=== PATIENT | male | born 1955 | race Hispanic/Latino ===

== ENCOUNTER 2017-08-17 10:07 | Emergency (ER) | payer BC ==
[2017-08-17 10:27] VITALS: RESP 18; BMI 24.3
--- NOTE | 2017-08-17 10:47 | ED PDOC ---
HPI: Psych/Substance Abuse Time Seen by Provider: 08/17/17 10:31 Chief Complaint (Nursing): Psychiatric Evaluation Chief Complaint (Provider): Psychiatric evaluation History Per: Patient History/Exam Limitations: no limitations Onset/Duration Of Symptoms: Days Current Symptoms Are (Timing): Still Present Associated Symptoms: Depression, Suicidal Thoughts Additional Complaint(s): 62yo male, with history of hypertension and depression, presents to ED for evaluation after he had suicidal ideation yesterday. Patient states he has been feeling depressed recently but denies any inciting incident. He states he has been from his for over 15 years and has 2 daughters with whom he has a good and healthy relationship. Patient states he was sober but started drinking alcohol 2-3 months prior; his last drink was over a week ago. He denies any suicidal ideation today, and denies any chest pain, shortness of breath, abdominal pain, vomiting or diarrhea. He denies any auditory or visual hallucinations as well. 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 He has no other medical complaints. Past Medical History Reviewed: Historical Data, Nursing Documentation, Vital Signs Vital Signs: Last Vital Signs Temp 98.3 F 08/17/17 10:25 Pulse 105 H 08/17/17 10:25 Resp 18 08/17/17 10:25 BP 180/106 H 08/17/17 10:25 Pulse Ox 96 08/17/17 10:25 - Medical History PMH: Depression, HTN - Surgical History Surgical History: No Surg Hx - Family History Family History: States: No Known Family Hx - Social History Alcohol: Occasional - Home Medications Home Medications: Ambulatory Orders Medication Instructions Recorded Valsartan [Diovan] 80 mg PO DAILY #14 tab 08/17/17 - Allergies Allergies/Adverse Reactions: Allergies Allergy/AdvReac Type Severity Reaction Status Date / Time No Known Allergies Allergy Verified 08/17/17 10:42 Review of Systems ROS Statement: Except As Marked, All Systems Reviewed And Found Negative Constitutional: Negative for: Fever, Chills Cardiovascular: Negative for: Chest Pain Respiratory: Negative for: Shortness of Breath Gastrointestinal: Negative for: Abdominal Pain Psych: Positive for: Suicidal ideation (none currently) Physical Exam - Reviewed Nursing Documentation Reviewed: Yes Vital Signs Reviewed: Yes - Physical Exam Appears: Positive for: Non-toxic Head Exam: Positive for: ATRAUMATIC, NORMAL INSPECTION, NORMOCEPHALIC Skin: Positive for: Normal Color Eye Exam: Positive for: Normal appearance Neck: Positive for: Supple Cardiovascular/Chest: Positive for: Tachycardia (accelerated resting heart rate at 108bpm) Respiratory: Positive for: Normal Breath Sounds. Negative for: Respiratory Distress Gastrointestinal/Abdominal: Positive for: Normal Exam, Soft. Negative for: Tenderness Extremity: Positive for: Normal ROM, Other (mild tremors noted to bilateral upper extremities) Neurologic/Psych: Positive for: Alert, Oriented. Negative for: Motor/Sensory Deficits - Laboratory Results Result Diagrams: 08/17/17 11:12 08/17/17 11:12 - ECG ECG: Positive for: Interpreted By Me, Viewed By Me Interpretation Of ECG: Normal sinus rhythm Poor R-wave progression V1-V3 Normal ST segments Normal intervals Rate: 84 O2 Sat by Pulse Oximetry: 96 (RA) Pulse Ox Interpretation: Normal Medical Decision Making Medical Decision Making: Impression: Depression, suicidal ideation Plan: -- Labs -- Crisis evaluation -- EKG time: 1210 Patient seen and evaluated by crisis team and as per Dr. Rosa, patient does not meet criteria for admission. Patient given referral for outpatient follow up. Diagnosis: Depression and alcohol dependency. Patient is not suicidal at this time and is stable for discharge home. Scribe Attestation: Documented by Batsheva Hussein acting as a scribe for Catalina Ferguson MD. Provider Attestation: All medical record entries made by the Scribe were at my direction and personally dictated by me. I have reviewed the chart and agree that the record accurately reflects my personal performance of the history, physical exam, medical decision making, and the department course for this patient. I have also personally directed, reviewed, and agree with the discharge instructions and disposition. Disposition - Clinical Impression Clinical Impression: Alcohol abuse, Depressed affect - Disposition Referrals: Alcoholics Anonymous [Outside] Provider TBD, [Primary Care Provider] - Disposition: Routine/Home Disposition Time: 19:07 Condition: FAIR Prescriptions: Valsartan [Diovan] 80 mg PO DAILY #14 tab Forms: [employer] ([place]) Print Language: CITIZEN OF [place]
[2017-08-17 11:24] LABS: EOS % 0.7 % (0.0-4.0); HEMOGLOBIN 15.8 g/dL (12.0-18.0); LYMPH # 0.9 K/uL (1.0-4.3); MEAN CELL VOLUME 96.2 fl (80.0-94.0); MEAN CORPUSCULAR HEMOGLOBIN 33.6 pg (27.0-31.0); MEAN PLATELET VOLUME 7.3 fl (7.2-11.7); MONO # 0.3 K/uL (0.0-0.8); MONO % 7.6 % (0.0-10.0); NEUT # 3.1 K/uL (1.8-7.0); NEUT % 69.7 % (50.0-75.0); RBC 4.69 Mil/uL (4.40-5.90); WHITE BLOOD COUNT 4.4 K/uL (4.8-10.8)
[2017-08-17 11:38] LABS: URINE BILIRUBIN NEGATIVE (NEGATIVE); URINE BLOOD NEGATIVE (NEGATIVE); URINE CLARITY SLIGHTY-CLOUDY (Clear); URINE COLOR AMBER (YELLOW); URINE GLUCOSE (UA) NEG (Normal); URINE HYALINE CAST 0-2 /hpf (0-2); URINE LEUKOCYTE ESTERASE NEG Leu/uL (Negative); URINE PROTEIN 30 mg/dL (NEGATIVE)
[2017-08-17 11:55] LABS: SQUAMOUS EPITHIAL 1 /hpf (0-5)
[2017-08-17 11:56] LABS: URINE BACTERIA RARE (<OCC)
[2017-08-17 12:02] LABS: ACETAMINOPHEN < 10.0 ug/ml (10.0-30.0); ALB/GLOB RATIO 1.3 (1.0-2.1); ALBUMIN 4.2 g/dL (3.5-5.0); ALT/SGPT 30 U/L (21-72); AST/SGOT 45 U/L (17-59); BLOOD UREA NITROGEN 13 mg/dl (9-20); GFR AFRICAN-AMERICAN > 60; GFR NON-AFRICAN AMERICAN > 60; SALICYLATE < 1.0 mg/dl
[2017-08-17 12:20] VITALS: BP 181/109; TEMP 97.9
[2017-08-17 12:42] LABS: BARBITURATES, UR NEGATIVE (NEGATIVE); BENZODIAZEPINES, UR NEGATIVE (NEGATIVE); OPIATES, UR NEGATIVE (NEGATIVE); PHENCYCLIDINE, UR NEGATIVE (NEGATIVE)
--- NOTE | 2017-08-17 14:48 | CARD ---
APPROVED REPORT EKG Measurement Heart [id number] <Conclusion> Normal sinus rhythm Septal infarct, age undetermined (Check chest lead placement) Abnormal ECG
[2017-08-17 19:05] VITALS: PULSE 84; O2SAT 96
== END 2017-08-17 12:51 | disposition home or self-care (01) ==
LOC: H.ER 10:07 → SUPCPDRO 10:07 → H.ER 12:51
DX: F10.20 Alcohol dependence, uncomplicated (principal); F32.9 Major depressive disorder, single episode, unspecified; I10 Essential (primary) hypertension; R45.851 Suicidal ideations
CPT/HCPCS: 80053; 81003; 85025; 93005; 99284; G0480